=== PATIENT | male | born 1980 | race Caucasian/White ===

== ENCOUNTER 2019-10-30 09:42 | Outpatient (CLI) | payer OTHER, BC, SELFPAY ==
--- NOTE | 2019-10-30 10:30 | NEURO_ITS ---
Patient Number: [id number] Impression: # Complains of numbness of hands, right more than left. # Evolving Carpal Tunnel Syndrome, left more than right. # No ulnar neuropathy. # Normal needle/EMG exam. # Clinical correlation recommended. Nerve Conduction Studies Anti Sensory Summary Table Stim Site NR Peak (ms) P-T Amp (?V) Site1 Site2 Delta-P (ms) Dist (cm) Allan (m/s) Left Median Anti Sensory (2-3nd Digit) Wrist 3.2 38.2 Wrist 2-3nd Digit 3.2 14.0 44 Wrist 3.3 43.4 Wrist 2-3nd Digit 3.2 14.0 44 Right Median Anti Sensory (2-3nd Digit) Wrist 3.2 34.0 Wrist 2-3nd Digit 3.2 14.0 44 Wrist 3.3 40.0 Wrist 2-3nd Digit 3.2 14.0 44 Left Radial Anti Sensory (Base 1st Digit) Wrist 2.1 12.9 Wrist Base 1st Digit 2.1 0.0 Right Radial Anti Sensory (Base 1st Digit) Wrist 2.1 14.7 Wrist Base 1st Digit 2.1 0.0 Left Ulnar Anti Sensory (5th Digit) Wrist 2.8 44.0 Wrist 5th Digit 2.8 14.0 50 Right Ulnar Anti Sensory (5th Digit) Wrist 2.7 37.2 Wrist 5th Digit 2.7 14.0 52 Motor Summary Table Stim Site NR Onset (ms) O-P Amp (mV) Site1 Site2 Delta-0 (ms) Dist (cm) Allan (m/s) Left Median Motor (Abd Poll Brev) Wrist 3.8 2.5 Elbow Wrist 4.4 27.0 61 Elbow 8.2 2.6 Right Median Motor (Abd Poll Brev) Wrist 3.6 2.4 Elbow Wrist 4.6 26.0 57 Elbow 8.2 1.9 Left Ulnar Motor (Abd Dig Minimi) Wrist 2.6 5.1 A Elbow Wrist 5.1 30.0 59 A Elbow 7.7 4.2 Right Ulnar Motor (Abd Dig Minimi) Wrist 2.7 4.2 A Elbow Wrist 4.7 27.0 57 A Elbow 7.4 3.2 F Wave Studies NR F-Lat (ms) L-R F-Lat (ms) Left Median (Mrkrs) (Abd Poll Brev) 28.61 1.01 Right Median (Mrkrs) (Abd Poll Brev) 29.62 1.01 Left Ulnar (Mrkrs) (Abd Dig Min) 28.83 1.00 Right Ulnar (Mrkrs) (Abd Dig Min) 27.83 1.00 EMG Side Muscle Nerve Root Ins Act Fibs Amp Dur Recrt Comment Right 1stDorInt Ulnar C8-T1 Nml Nml Nml Nml Nml Right Ext Indicis Radial (Post Int) C7-8 Nml Nml Nml Nml Nml Right Ext Digitorum Radial (Post Int) C7-8 Nml Nml Nml Nml Nml Right BrachioRad Radial C5-6 Nml Nml Nml Nml Nml Right PronatorTeres Median C6-7 Nml Nml Nml Nml Nml Right Abd Poll Brev Median C8-T1 Nml Nml Nml Nml Nml Left 1stDorInt Ulnar C8-T1 Nml Nml Nml Nml Nml Left Ext Indicis Radial (Post Int) C7-8 Nml Nml Nml Nml Nml Left Ext Digitorum Radial (Post Int) C7-8 Nml Nml Nml Nml Nml Left BrachioRad Radial C5-6 Nml Nml Nml Nml Nml Left PronatorTeres Median C6-7 Nml Nml Nml Nml Nml Left Abd Poll Brev Median C8-T1 Nml Nml Nml Nml Nml MTDD
== END 2019-10-30 09:43 | disposition home or self-care (01) ==
PROVIDERS: PCP Family Medicine; Visit Provider Family Medicine
DX: G56.03 Carpal tunnel syndrome, bilateral upper limbs (principal)
CPT/HCPCS: 95886; 95911

== ENCOUNTER 2019-12-22 00:47 | Outpatient (CLI) | payer OTHER, SELFPAY ==
[2019-12-22 18:37] LABS: SARS-CoV-2 RNA PCR Negative
== END 2019-12-22 00:48 | disposition home or self-care (01) ==
LOC: ANHCOVIDDT 00:47
PROVIDERS: PCP Family Medicine; Visit Provider Orthopaedic Surgery
DX: Z01.812 Encounter for preprocedural laboratory examination (principal); Z20.828 Contact with and (suspected) exposure to other viral communicable diseases
CPT/HCPCS: 87635; C9803; U0003

== ENCOUNTER 2019-12-25 05:19 | Day surgery (SDC) | payer OTHER, SELFPAY ==
[2019-12-17 15:05] VITALS: BMI 35.7
[2019-12-25] VITALS (7 sets, daily range): BP systolic 98–147; BP diastolic 63–86; PULSE 77–91; RESP 10–16; TEMP 36.2–36.8; O2SAT 96–98
--- NOTE | 2019-12-25 07:25 | WPDHPUPDATE1 ---
History and Physical Update Update Date/Time: 12/25/19 07:25 History and Physical has been reviewed, including an updated exam of the patient. There are NO changes in the patient's condition. Risks, benefits, and alternatives have been discussed and questions answered. Patient agrees to proceed with procedure.
[2019-12-25] MEDS: ACETAMINOPHEN 500 MG TABLET 1000 MG PO (11:53)
[2019-12-25] MEDS: CELECOXIB 200 MG CAPSULE PO (11:54)
[2019-12-25] MEDS: LACTATED RINGERS 1,000 ML 30 ML IV CONT (12:05)
--- NOTE | 2019-12-25 12:51 | WPDANESEPPF ---
Anes - Initial Pre Proc Eval Procedure: Operation Date: 12/25/19 14:30 Proposed Procedures p Right Carpal Tunnel Release - Kyler You MD Date/Time: 12/25/19 12:51 Surgeon: Kyler You MD Pre Op Diagnosis: right carpal tunnel syndrome Patient Data Age: 39 Gender: M Height: 5 ft 8 in Weight: 108.6 kg Last Vital Signs Temp 36.8 C 12/25/19 12:12 Pulse 85 12/25/19 12:12 Resp 16 12/25/19 12:12 BP 147/86 H 12/25/19 12:12 Pulse Ox 98 12/25/19 12:12 Allergies Allergy/AdvReac Type Severity Reaction Status Date / Time duloxetine [From Cymbalta] Allergy Mild Rash Verified 12/25/19 11:33 Home Medications Medication Instructions Recorded Confirmed Type bupropion HCl 150 mg 24 hr tablet, 150 mg PO QAM 08/28/19 12/25/19 History extended release bupropion HCl 300 mg 24 hr tablet, 300 mg PO QAM 08/28/19 12/25/19 History extended release vortioxetine 20 mg tablet 20 mg PO DAILY 08/28/19 12/25/19 History naproxen 500 mg tablet 500 mg PO BID PRN #180 tablet 09/17/19 12/25/19 Rx Kratom 2 cap PO BID 12/17/19 History Patient hx anesthesia problems: none Family hx anesthesia problems: none PMFSH Past Medical History Medical History Acute arthritis Allergies Anxiety Bilateral carpal tunnel syndrome Chronic anxiety Depression Fibromyalgia History of migraine headaches IBS (irritable bowel syndrome) Irritable bowel syndrome with diarrhea Migraine without aura and without status migrainosus, not intractable Positive LANIE (antinuclear antibody) Psoriatic arthritis Seasonal allergic rhinitis Sleep apnea Surgical History Surgical History History of fasciotomy (~2004) Family History Family History Mother Hypertension Family history of lupus erythematosus Family history of rheumatoid arthritis Family history of cardiac disorder Carcinoma of colon Family history of malignant neoplasm of cervix Sibling Colon polyp Other Diabetes mellitus Family history of arthritis Neuropathy Social History Social History Smoking status: Unknown if ever smoked Tobacco type: smokeless tobacco Smokeless tobacco user: chewing tobacco Additional smoking assessment comments: CHEWING TOBACCO X 8 YEARS Alcohol intake: current Substance use: unknown Gender identity (if verbalized by the patient): Male Spiritual care concerns: No Anes - Eval Final PreProcedure Day of Procedure 12/25/19 12:51 Patient weight: obese Heart: regular rate and rhythm Lungs: clear to auscultation Airway: Mallampati scale class II Neurological: alert and oriented Last oral intake: >/= 8 hours ASA classification: III Emergent: no Anesthetic plan: proceed Anesthesia type and monitoring: general LMA and standard monitoring Informed Consent: The patient's anesthetic plan and its attendant risks and benefits were discussed with the patient/family/POA. Questions were solicited and answers provided to the satisfaction of the patient/family/POA.
[2019-12-25] MEDS: ceFAZolin 2 GM/D5W 50 ML 2 GM/50 ML BAG IVPB (13:00)
--- NOTE | 2019-12-25 13:41 | PM.PROC ---
Procedure Note - Detailed Date of procedure: 12/25/19 Pre-op diagnosis: right carpal tunnel syndrome Post-op diagnosis: same Procedure performed: R CTR Description of procedure: THE RIGHT UPPER EXTREMITY WAS PREPPED AND DRAPED IN THE STERILE FASHION. THE CARPAL TUNNEL WAS MARKED FROM THE FLEXED RING FINGER. THE TORNEQUET WAS INFLATED. THE INCISION WAS MADE AT THE MID PALM DOWN THROUGH THE SUBCUTANEOUS TISSUES. THE PALMAR FASCIA WAS IDENTIFIED. AN INCISION WAS MADE THROUGH THE PALMAR FASCIA UNTIL THE CARPAL TUNNEL WAS ENTERED. A MOSQUITO HEMOSTAT WAS USED TO PROTECT THE MEDIAN NERVE WHILE THE INCISION TO THE PALMAR FASCIA WAS COMPLETE PROXIMALLY AND DISTALLY TO THE CARDINAL LINE. NEXT, THE TRANSVERSE CARPAL LIGAMENT WAS IDENTIFIED. A FREIER ELEVATOR WAS USED TO SEPARATE THE NERVE FROM THE LIGAMENT. A METZENBAUM SCISSORS WAS THEN USED TO INCISE THE TRANSVERSE CARPAL LIGAMENT UNTIL THERE WAS A COMPLETE RELEASE OF THE CARPAL TUNNEL. THE MEDIAN NERVE WAS INTACT. THE TOURNEQUET WAS DEFLATED. THE BLEEDERS WERE CAUTERIZED. THE WOUND WAS WASHED. THE SKIN WAS APPROXIMATED WITH 4-0 NYLON SUTURE. STERILE DRESSING WAS APPLIED. PATIENT WAS EXTUBATED AND SENT TO THE RECOVERY ROOM. Anesthesia: GLMA Surgeon: Kyler You MD Estimated blood loss (mL): 1 Complications: No immediate complications Condition: stable Disposition: PACU
== END 2019-12-25 15:13 | disposition home or self-care (01) ==
PROVIDERS: PCP Family Medicine; Visit Provider Orthopaedic Surgery
PROC: (CPT 64721; principal; 2019-12-25 14:30)
DX: G56.01 Carpal tunnel syndrome, right upper limb (principal); L40.50 Arthropathic psoriasis, unspecified; K58.0 Irritable bowel syndrome with diarrhea; F41.9 Anxiety disorder, unspecified; F32.9 Major depressive disorder, single episode, unspecified; G43.009 Migraine without aura, not intractable, without status migrainosus; M19.90 Unspecified osteoarthritis, unspecified site; Z87.891 Personal history of nicotine dependence; E66.9 Obesity, unspecified; Z68.36 Body mass index [BMI] 36.0-36.9, adult
CPT/HCPCS: 64721; A9270; J0690; J1100; J2250; J2370; J2405; J2704; J3010; J7120

== ENCOUNTER 2020-01-16 00:08 | Outpatient (CLI) | payer OTHER, SELFPAY ==
[2020-01-16 18:38] LABS: SARS-CoV-2 RNA PCR Negative
== END 2020-01-16 00:09 | disposition home or self-care (01) ==
LOC: ANHCOVIDDT 00:08
PROVIDERS: PCP Family Medicine; Visit Provider Orthopaedic Surgery
DX: Z01.812 Encounter for preprocedural laboratory examination (principal); Z20.828 Contact with and (suspected) exposure to other viral communicable diseases
CPT/HCPCS: 87635; C9803; U0003

== ENCOUNTER 2020-01-18 01:21 | Day surgery (SDC) | payer OTHER, SELFPAY ==
[2020-01-10 09:29] VITALS: BMI 35.9
--- NOTE | 2020-01-10 12:33 | PM.IMHP ---
H&P: HPI History of Present Illness Date/Time: Hand/Wrist Pain Bilateral CTS. Pt had EMG/NCS on 10/30/19. Onset: gradual Timin-3 months Location of pain: palmar hand Character: throbbing, numbing and tingling Timing of pain: constant Associated symptoms: Reports weakness; Denies fever(s), erythema, warmth or swelling Exacerbated by: prolonged activities Relieved by: rest Swelling: No History of occupational/recreational activity with repetitive movement: No History of prior hand/wrist injury: No Chief Complaint Chief Complaint: see Reason for Visit Duration: months Severity: moderate Associated signs and symptoms: symptoms reported: (see hpi ) Exacerbating/relieving factors: exacerbating factors: (see hpi ) and relieving factors: (see hpi ) Chief complaint: left carpal tunnel syndrome Review of Systems Review of Systems: All systems reviewed & are unremarkable except as noted in HPI and below Constitutional: Constitutional: Denies headache(s) and Denies weakness Eyes: Eyes: Denies blurry vision, Denies change in vision and Denies loss of vision ENT: Denies dizziness, Denies dry mouth, Denies headache(s) and Denies nasal congestion Cardiovascular: Cardiovascular: Denies chest pain, Denies syncope, Denies leg edema and Denies dyspnea on exertion Respiratory: Respiratory: Denies cough and Denies dyspnea on exertion Gastrointestinal: Gastrointestinal: Denies abdominal pain, Denies constipation and Denies diarrhea Genitourinary: Genitourinary: Denies urinary frequency Musculoskeletal: Musculoskeletal: Reports as per HPI and Denies numbness Integumentary/Breasts: Skin/Breast: Reports system reviewed and no additional complaints, except as docu Neurologic: Denies dizziness, Denies syncope, Denies headache(s), Denies loss of vision, Denies numbness and Denies weakness Psychiatric: Psychiatric: Reports no additional psychiatric complaints Endocrine: Endocrine: Reports no additional endocrine complaints Hematologic/Lymphatic: Hematologic/Lymphatic: Reports no additional hematologic/lymphatic complaints [facility] Past Medical History Medical History Acute arthritis Allergies Anxiety Bilateral carpal tunnel syndrome Chronic anxiety Depression Fibromyalgia History of migraine headaches IBS (irritable bowel syndrome) Irritable bowel syndrome with diarrhea Migraine without aura and without status migrainosus, not intractable Positive LANIE (antinuclear antibody) Psoriatic arthritis Seasonal allergic rhinitis Sleep apnea Surgical History Surgical History History of fasciotomy (~2004) Family History Family History Mother Hypertension Family history of lupus erythematosus Family history of rheumatoid arthritis Family history of cardiac disorder Carcinoma of colon Family history of malignant neoplasm of cervix Sibling Colon polyp Other Diabetes mellitus Family history of arthritis Neuropathy Social History Social History Smoking status: Unknown if ever smoked Tobacco type: smokeless tobacco Smokeless tobacco user: chewing tobacco Additional smoking assessment comments: sometimes chewing tobacco Alcohol intake: current Substance use: never Gender identity (if verbalized by the patient): Male Spiritual care concerns: No Meds Home Medications and Allergies Home Medications Medication Instructions Recorded Confirmed Type bupropion HCl 150 mg 24 hr tablet, 150 mg PO QAM 08/28/19 01/10/20 History extended release bupropion HCl 300 mg 24 hr tablet, 300 mg PO QAM 08/28/19 01/10/20 History extended release vortioxetine 20 mg tablet 20 mg PO DAILY 08/28/19 01/10/20 History naproxen 500 mg tablet 500 mg PO BID PRN #180 tablet 09/17/19 01/10/20 Rx Kratom 2 cap PO BI
[2020-01-18] VITALS (9 sets, daily range): BP systolic 111–152; BP diastolic 77–105; PULSE 80–93; RESP 12–19; TEMP 35.9–36.3; O2SAT 95–99; BMI 36.1
[2020-01-18] MEDS: CELECOXIB 200 MG CAPSULE PO (06:26)
[2020-01-18] MEDS: ACETAMINOPHEN 500 MG TABLET 1000 MG PO (06:27)
[2020-01-18] MEDS: LACTATED RINGERS 1,000 ML 30 ML IV CONT (06:30)
--- NOTE | 2020-01-18 06:57 | WPDANESEPPF ---
Anes - Initial Pre Proc Eval Procedure: Operation Date: 01/18/20 07:30 Proposed Procedures p Left Carpal Tunnel Release - Kyler You MD Date/Time: 01/18/20 06:57 Surgeon: Kyler You MD Pre Op Diagnosis: left carpal tunnel syndrome Patient Data Age: 39 Gender: M Height: 5 ft 8 in Weight: 108 kg Last Vital Signs Temp 36.3 C L 01/18/20 06:16 Pulse 80 01/18/20 06:16 Resp 18 01/18/20 06:16 BP 152/105 H 01/18/20 06:16 Pulse Ox 99 01/18/20 06:16 Allergies Allergy/AdvReac Type Severity Reaction Status Date / Time duloxetine [From Cymbalta] Allergy Mild Rash Verified 01/18/20 06:08 Home Medications Medication Instructions Recorded Confirmed Type bupropion HCl 150 mg 24 hr tablet, 150 mg PO QAM 08/28/19 01/18/20 History extended release bupropion HCl 300 mg 24 hr tablet, 300 mg PO QAM 08/28/19 01/18/20 History extended release vortioxetine 20 mg tablet 20 mg PO DAILY 08/28/19 01/18/20 History naproxen 500 mg tablet 500 mg PO BID PRN #180 tablet 09/17/19 01/18/20 Rx Kratom 2 cap PO BID 12/17/19 01/18/20 History Patient hx anesthesia problems: none Family hx anesthesia problems: none PMFSH Past Medical History Medical History Acute arthritis Allergies Anxiety Bilateral carpal tunnel syndrome Chronic anxiety Depression Fibromyalgia History of migraine headaches IBS (irritable bowel syndrome) Irritable bowel syndrome with diarrhea Migraine without aura and without status migrainosus, not intractable Positive LANIE (antinuclear antibody) Psoriatic arthritis Seasonal allergic rhinitis Sleep apnea Surgical History Surgical History History of fasciotomy (~2004) Family History Family History Mother Hypertension Family history of lupus erythematosus Family history of rheumatoid arthritis Family history of cardiac disorder Carcinoma of colon Family history of malignant neoplasm of cervix Sibling Colon polyp Other Diabetes mellitus Family history of arthritis Neuropathy Social History Social History Smoking status: Unknown if ever smoked Tobacco type: smokeless tobacco Smokeless tobacco user: chewing tobacco Additional smoking assessment comments: sometimes chewing tobacco Alcohol intake: current Substance use: never Living arrangements: with family Gender identity (if verbalized by the patient): Male Sexual Orientation (if Verbalized by the Patient): Straight or Heterosexual Spiritual care concerns: No Anes - Eval Final PreProcedure Day of Procedure 01/18/20 06:57 Patient weight: obese Heart: regular rate and rhythm Lungs: clear to auscultation Airway: Mallampati scale class II Neurological: alert and oriented Last oral intake: >/= 8 hours ASA classification: III Emergent: no Anesthetic plan: proceed Anesthesia type and monitoring: general LMA and standard monitoring Informed Consent: The patient's anesthetic plan and its attendant risks and benefits were discussed with the patient/family/POA. Questions were solicited and answers provided to the satisfaction of the patient/family/POA.
--- NOTE | 2020-01-18 07:17 | WPDHPUPDATE1 ---
History and Physical Update Update Date/Time: 01/18/20 07:17 History and Physical has been reviewed, including an updated exam of the patient. There are NO changes in the patient's condition. Risks, benefits, and alternatives have been discussed and questions answered. Patient agrees to proceed with procedure.
[2020-01-18] MEDS: ceFAZolin 2 GM/D5W 50 ML 2 GM/50 ML BAG IVPB (07:24)
--- NOTE | 2020-01-18 08:26 | PM.PROC ---
Procedure Note - Detailed Date of procedure: 01/18/20 Pre-op diagnosis: left carpal tunnel syndrome Post-op diagnosis: same Procedure performed: L CTR Description of procedure: THE LEFT UPPER EXTREMITY WAS PREPPED AND DRAPED IN THE STERILE FASHION. THE CARPAL TUNNEL WAS MARKED FROM THE FLEXED RING FINGER. THE TORNEQUET WAS INFLATED. THE INCISION WAS MADE AT THE MID PALM DOWN THROUGH THE SUBCUTANEOUS TISSUES. THE PALMAR FASCIA WAS IDENTIFIED. AN INCISION WAS MADE THROUGH THE PALMAR FASCIA UNTIL THE CARPAL TUNNEL WAS ENTERED. A MOSQUITO HEMOSTAT WAS USED TO PROTECT THE MEDIAN NERVE WHILE THE INCISION TO THE PALMAR FASCIA WAS COMPLETE PROXIMALLY AND DISTALLY TO THE CARDINAL LINE. NEXT, THE TRANSVERSE CARPAL LIGAMENT WAS IDENTIFIED. A FREIER ELEVATOR WAS USED TO SEPARATE THE NERVE FROM THE LIGAMENT. A METZENBAUM SCISSORS WAS THEN USED TO INCISE THE TRANSVERSE CARPAL LIGAMENT UNTIL THERE WAS A COMPLETE RELEASE OF THE CARPAL TUNNEL. THE MEDIAN NERVE WAS INTACT. THE TOURNEQUET WAS DEFLATED. THE BLEEDERS WERE CAUTERIZED. THE WOUND WAS WASHED. THE SKIN WAS APPROXIMATED WITH 4-0 NYLON SUTURE. STERILE DRESSING WAS APPLIED. PATIENT WAS EXTUBATED AND SENT TO THE RECOVERY ROOM. Anesthesia: GLMA Surgeon: Kyler You MD Estimated blood loss (mL): 5 Complications: No immediate complications Condition: stable Disposition: PACU
[2020-01-18] MEDS: fentaNYL CITRATE INJ (*CRX) 100 MCG/2 ML VIAL 25 MCG IV PUSH (08:40)
[2020-01-18] MEDS: oxyCODONE HCL (*CRX) 5 MG TAB IR PO (09:26)
== END 2020-01-18 10:13 | disposition home or self-care (01) ==
PROVIDERS: PCP Family Medicine; Visit Provider Orthopaedic Surgery
PROC: (CPT 64721; principal; 2020-01-18 07:30)
DX: G56.02 Carpal tunnel syndrome, left upper limb (principal); L40.50 Arthropathic psoriasis, unspecified; F41.8 Other specified anxiety disorders; M79.7 Fibromyalgia; K58.9 Irritable bowel syndrome, unspecified; G47.30 Sleep apnea, unspecified; F17.220 Nicotine dependence, chewing tobacco, uncomplicated; E66.9 Obesity, unspecified; Z68.36 Body mass index [BMI] 36.0-36.9, adult
CPT/HCPCS: 64721; A9270; J0690; J1100; J2250; J2405; J2704; J3010; J7120

== ENCOUNTER 2020-04-08 09:09 | Outpatient (CLI) | payer BC, SELFPAY ==
--- NOTE | 2020-05-18 17:35 | WPDHOMESLEEP ---
Sleep Study - Home Unattended Date of Study: 04/08/20 Ordering Provider: Art Mclean MD Interpreting Physician: Kellie Alarcon MD Home Sleep Study Type: Watch PAT Height: 1.73 m Weight: 108.862 kg Body Mass Index: 36.5 Neck Circumference (inches): 17.5 [place]: 6 Reason for Sleep Study history of moderate sleep apnea; always feels tired in the day, nonrestorative sleep Sleep History Tobias Carlton is a 39 year old man who always feels excessively tired. He had a sleep study in the past, has a diagnosis of moderate obstructive sleep apnea. He has psoriatic arthritis, fibromyalgia. He has used different medications to help him sleep. He constantly snores loudly enough that others complain about it. He rarely awakens at night with heartburn, belching or coughing. He never wakens from sleep feeling short of breath. He occasionally has trouble sleeping with a cold. He does not gasp for breath at night and does not have breathing problems at night witnessed by others. He frequently sweats excessively at night. He does not notice his heart pounding or beating irregularly night. He does not fall asleep during the day. He frequently falls asleep involuntarily however never while driving and never while exerting physical effort. He occasionally has loss of muscle tone with strong emotion and occasionally has daytime difficulty using a sleepiness. He works as a Construction Rigging Specialist. is he never feels a lot with her sleep. He constantly has fitted dreamlike scenes upon awakening or falling asleep. He is not afraid to go to sleep. he occasionally has nightmares occasionally remembers his dreams. He constantly has racing thoughts. She frequently feels sad, depressed and anxious. He never has muscular tension. He occasionally notices parts of his body jerking. He does not kick at night. He constantly has crawling and aching feelings in his legs. He frequently has leg pain at night. He does not have morning jaw pain. He does not grind his teeth during sleep. He constantly is bothered by pain during the day. Occasionally is awakened by pain at night. He constantly wakes up feeling stiff in the morning with sore or achy muscles and pain in the neck and spine. He has fatigue, memory problems, concentration difficulties, depression and sexual problems. Normal bedtime is 11:00 p.m., falling asleep within 5-10 minutes, typically waking once at night to urinate and sometimes get a drink of water. He is able to return to sleep within 10 minutes. He wakes in the morning at 6:30 a.m. On weekends, he stays awake later, midnight or 12:30 a.m. bedtime and waking at 8:00 a.m.. He hits the snooze button for 8 minutes once in the morning. He does not take naps. A short nap is not refreshing. He is drowsy in the morning for 1 hour or longer. Habits: He never smoked tobacco. No caffeine, alcohol or recreational drugs PMFSH Past Medical History Medical History (Updated 05/18/20 @ 18:07 by Kellie Alarcon MD) Acute arthritis Acute sinusitis, unspecified Allergies Anxiety Bilateral carpal tunnel syndrome Chronic anxiety COVID-19 Depression Exposure to COVID-19 virus Fibromyalgia History of migraine headaches IBS (irritable bowel syndrome) Irritable bowel syndrome with diarrhea Migraine without aura and without status migrainosus, not intractable Positive LANIE (antinuclear antibody) Psoriatic arthritis Seasonal allergic rhinitis Sleep apnea Surgical History Surgical History (Updated 05/18/20 @ 17:41 by Kellie Alarcon MD) History of carpal tunnel release of both wrists History of fasciotomy (~2004) both lower legs 2004 Family History Family History Mother Hypertension Family history of lupus erythematosus Family history of rheumatoid arthritis Family history of cardiac disorder Carcinoma of colon Family history of malignant neoplasm of cervix Sibling Colon
[2020-05-18 18:11] VITALS: BMI 36.5
== END 2020-04-08 09:10 | disposition home or self-care (01) ==
LOC: ANHCSM 09:12
PROVIDERS: PCP Family Medicine; Visit Provider Family Medicine
DX: G47.33 Obstructive sleep apnea (adult) (pediatric) (principal)
CPT/HCPCS: 95800

== ENCOUNTER → 2020-05-31 06:50 | Outpatient (CLI) | payer BC, SELFPAY ==
[2020-05-31 19:42] LABS: SARS-CoV-2 RNA PCR Negative
== END ==
PROVIDERS: PCP Family Medicine; Visit Provider Internal Medicine Critical Care Medicine
DX: R68.89 Other general symptoms and signs (principal); Z20.822 Contact with and (suspected) exposure to COVID-19
CPT/HCPCS: C9803; U0003; U0005

== ENCOUNTER 2020-06-03 08:59 | Outpatient (CLI) | payer BC, SELFPAY ==
--- NOTE | 2020-06-23 14:27 | WPDSLEEPSTUD ---
Sleep Study Ordering Provider: Art Mclean MD Interpreting Physician: Kellie Alarcon MD Sleep Study Type: CPAP Titration Height: 1.73 m Weight: 102.058 kg Body Mass Index: 34.2 Neck Circumference (inches): 17 [place]: 8 Reason for Sleep Study Home Sleep Test April 08, 2020 with severe obstructive sleep apnea syndrome AHI 45.5, desaturation 82%; he is here for CPAP titration. Sleep History Tobias Carlton is a 39 year old male who had a home sleep test Apr 08, 2020, with severe MARBELLA, and is here for CPAP titration. He had a sleep study in the past, has a diagnosis of moderate obstructive sleep apnea. He has psoriatic arthritis and fibromyalgia. He has used different medications to help him sleep. He constantly snores loudly enough that others complain about it. He rarely awakens at night with heartburn, belching or coughing. He never awakens from sleep feeling short of breath. He occasionally has trouble sleeping with a cold. He does not gasp for breath at night and does not have breathing problems at night witnessed by others. He frequently sweats excessively at night. He does not notice his heart pounding or beating irregularly night. He does not fall asleep during the day. He frequently falls asleep involuntarily however never while driving and never while exerting physical effort. He occasionally has loss of muscle tone with strong emotion and occasionally has daytime difficulty using a sleepiness. He works as a Construction Rigging Specialist. He constantly has vivid dreamlike scenes upon awakening or falling asleep. He is not afraid to go to sleep. He occasionally has nightmares, and occasionally remembers his dreams. He constantly has racing thoughts. He frequently feels sad, depressed and anxious. He never has muscular tension. He occasionally notices parts of his body jerking. He does not kick at night. He constantly has crawling and aching feelings in his legs. He frequently has leg pain at night. He does not have morning jaw pain. He does not grind his teeth during sleep. He constantly is bothered by pain during the day, and occasionally is awakened by pain at night. He constantly wakes up feeling stiff in the morning with sore or achy muscles and pain in the neck and spine. He has fatigue, memory problems, concentration difficulties, depression and sexual problems. Normal bedtime is 11:00 p.m., falling asleep within 5-10 minutes, typically waking once at night to urinate and sometimes get a drink of water. He is able to return to sleep within 10 minutes. He wakes in the morning at 6:30 a.m. On weekends, he stays awake later, midnight or 12:30 a.m. bedtime and waking at 8:00 a.m.. He hits the snooze button for 8 minutes once in the morning. He does not take naps. A short nap is not refreshing. He is drowsy in the morning for 1 hour or longer. Habits: He never smoked tobacco. No caffeine, alcohol or recreational drugs PMFSH Past Medical History Medical History (Updated 06/23/20 @ 14:39 by Kellie Alarcon MD) Acute arthritis Acute sinusitis, unspecified Allergies Anxiety Bilateral carpal tunnel syndrome Chronic anxiety COVID-19 Depression Exposure to COVID-19 virus Fibromyalgia History of migraine headaches IBS (irritable bowel syndrome) Irritable bowel syndrome with diarrhea Migraine without aura and without status migrainosus, not intractable Positive LANIE (antinuclear antibody) Psoriatic arthritis Seasonal allergic rhinitis Sleep apnea Surgical History Surgical History (Updated 05/18/20 @ 17:41 by Kellie Alarcon MD) History of carpal tunnel release of both wrists History of fasciotomy (~2004) both lower legs 2004 Family History Family History Mother Hypertension Family history of lupus erythematosus Family history of rheumatoid arthritis Family history of cardiac disorder Carcinoma of colon Family history of maligna
[2020-06-23 14:54] VITALS: BMI 34.2
== END 2020-06-03 09:00 | disposition home or self-care (01) ==
LOC: ANHCSM 08:59
PROVIDERS: PCP Family Medicine; Visit Provider Family Medicine
DX: G25.81 Restless legs syndrome (principal)
CPT/HCPCS: 95811

== ENCOUNTER → 2020-12-08 01:40 | Outpatient (CLI) | payer BC, SELFPAY | PROVIDERS: PCP Family Medicine; Visit Provider Surgery | DX: Z20.822 Contact with and (suspected) exposure to COVID-19 (principal) | CPT/HCPCS: C9803; U0003; U0005 ==

== ENCOUNTER 2020-12-11 02:00 | Day surgery (SDC) | payer BC, SELFPAY ==
[2020-12-02 13:29] VITALS: BMI 35.9
[2020-12-09 19:52] LABS: SARS-CoV-2 RNA PCR Negative
--- NOTE | 2020-12-10 13:01 | WPDANESEPPF ---
Anes - Initial Pre Proc Eval Procedure: Operation Date: 12/11/20 08:00 Proposed Procedures p Screening Colonoscopy - Rafael Lancastre DO Date/Time: 12/10/20 13:01 Surgeon: Rafael Lancaster DO Pre Op Diagnosis: family hx of colon ca Patient Data Age: 40 Gender: M Height: 1.73 m Weight: 107 kg Allergies Allergy/AdvReac Type Severity Reaction Status Date / Time duloxetine [From Cymbalta] Allergy Mild Rash Verified 12/11/20 06:47 Home Medications Medication Instructions Recorded Confirmed Type bupropion HCl 150 mg 24 hr tablet, 150 mg PO QAM 08/28/19 12/02/20 History extended release bupropion HCl 300 mg 24 hr tablet, 300 mg PO QAM 08/28/19 12/02/20 History extended release vortioxetine 20 mg tablet 20 mg PO DAILY 08/28/19 12/02/20 History Kratom 2 cap PO BID 12/17/19 12/02/20 History naproxen 500 mg tablet 500 mg PO BID PRN #180 tablet 09/02/20 12/02/20 Rx Laboratory Tests 12/08/20 07:36 SARS-CoV-2 RNA (RT-PCR) Negative Patient hx anesthesia problems: none Family hx anesthesia problems: none PMFSH Past Medical History Medical History (Updated 12/10/20 @ 13:02 by Prakash Anne DO) Acute arthritis Acute sinusitis, unspecified Allergies Anxiety Bilateral carpal tunnel syndrome BMI 35.0-35.9,adult Chronic anxiety Chronic depression COVID-19 (~02/13/20) Depression Exposure to COVID-19 virus Fibromyalgia History of migraine headaches IBS (irritable bowel syndrome) Irritable bowel syndrome with diarrhea Laceration of lip without complication Migraine without aura and without status migrainosus, not intractable Obstructive sleep apnea (~04/2100) very severe MARBELLA with AHI of 45 home sleep study with CPAP titration on 06/03/2020 with CPAP at 10 cm of water pressure with medium air fit N30 nasal pillows Positive LANIE (antinuclear antibody) Psoriatic arthritis Seasonal allergic rhinitis Sleep apnea Surgical History Surgical History (Updated 05/18/20 @ 17:41 by Kellie Alarcon MD) History of carpal tunnel release of both wrists History of fasciotomy (~2004) both lower legs 2005 Family History Family History Mother Hypertension Family history of lupus erythematosus Family history of rheumatoid arthritis Family history of cardiac disorder Carcinoma of colon Family history of malignant neoplasm of cervix Sibling Colon polyp Other Diabetes mellitus Family history of arthritis Neuropathy Social History Social History Smoking status: Former smoker Tobacco type: smokeless tobacco Additional smoking assessment comments: sometimes chewing tobacco Alcohol intake: current Alcohol use details: 2x Monthly Substance use: never Substance use type: does not use Living arrangements: with family Gender identity (if verbalized by the patient): Male Sexual Orientation (if Verbalized by the Patient): Straight or Heterosexual Spiritual care concerns: No Anes - Eval Final PreProcedure Day of Procedure 12/10/20 13:01 Patient weight: obese Heart: regular rate and rhythm Lungs: clear to auscultation and normal air movement Airway: Mallampati scale class II Neurological: alert and oriented Last oral intake: >/= 8 hours ASA classification: III Emergent: no Anesthetic plan: proceed Anesthesia type and monitoring: general GIVS and standard monitoring Informed Consent: The patient's anesthetic plan and its attendant risks and benefits were discussed with the patient/family/POA. Questions were solicited and answers provided to the satisfaction of the patient/family/POA.
[2020-12-11 06:49] VITALS: BP 143/96; PULSE 78; RESP 18; TEMP 36.5; O2SAT 99; BMI 36.8
[2020-12-11] MEDS: LACTATED RINGERS 1,000 ML 150 ML IV CONT (07:00)
--- NOTE | 2020-12-11 08:17 | PM.IMHP ---
H&P: HPI History of Present Illness Date/Time: 12/11/20 08:17 Chief Complaint: family history of colon cancer and colon polyps Narrative: this is a 40-year-old man who presents for colonoscopy. He has never had a colonoscopy before. He has a family history of colon polyps in his mother and sister and there is also second-degree relatives that have had colon cancer. He denies any blood in his stool. He denies any bowel habit changes. Review of Systems Review of Systems: All systems reviewed & are unremarkable except as noted in HPI and below Constitutional: Constitutional: Denies chills, Denies fever(s), Denies headache(s) and Denies weight loss Eyes: Eyes: Denies change in vision ENT: Denies dizziness, Denies headache(s), Denies neck mass and Denies throat swelling Cardiovascular: Cardiovascular: Denies chest pain, Denies lightheadedness and Denies dyspnea Respiratory: Respiratory: Denies cough, Denies dyspnea and Denies wheezing Gastrointestinal: Gastrointestinal: Denies abdominal pain, Denies change in bowel habits, Denies nausea and Denies vomiting Genitourinary: Genitourinary: Denies hematuria and Denies dysuria Musculoskeletal: Musculoskeletal: Reports as per HPI Integumentary/Breasts: Skin/Breast: Reports as per HPI Neurologic: Denies dizziness and Denies headache(s) Allergic/Immunologic: Allergic/Immunologic: Denies throat swelling and Denies wheezing [facility] Past Medical History Medical History (Updated 12/11/20 @ 08:18 by Rafael Lancaster DO) Acute arthritis Acute sinusitis, unspecified Allergies Anxiety Bilateral carpal tunnel syndrome BMI 35.0-35.9,adult Chronic anxiety Chronic depression COVID-19 (~02/13/20) Depression Exposure to COVID-19 virus Fibromyalgia History of migraine headaches IBS (irritable bowel syndrome) Irritable bowel syndrome with diarrhea Laceration of lip without complication Migraine without aura and without status migrainosus, not intractable Obstructive sleep apnea (~04/2100) very severe MARBELLA with AHI of 45 home sleep study with CPAP titration on 06/03/2020 with CPAP at 10 cm of water pressure with medium air fit N30 nasal pillows Positive LANIE (antinuclear antibody) Psoriatic arthritis Seasonal allergic rhinitis Sleep apnea Surgical History Surgical History (Updated 05/18/20 @ 17:41 by Kellie Alarcon MD) History of carpal tunnel release of both wrists History of fasciotomy (~2004) both lower legs 2004 Family History Family History Mother Hypertension Family history of lupus erythematosus Family history of rheumatoid arthritis Family history of cardiac disorder Carcinoma of colon Family history of malignant neoplasm of cervix Sibling Colon polyp Other Diabetes mellitus Family history of arthritis Neuropathy Social History Social History Smoking status: Former smoker Tobacco type: smokeless tobacco Additional smoking assessment comments: sometimes chewing tobacco Alcohol intake: current Alcohol use details: 2x Monthly Substance use: never Substance use type: does not use Living arrangements: with family Gender identity (if verbalized by the patient): Male Sexual Orientation (if Verbalized by the Patient): Straight or Heterosexual Spiritual care concerns: No Meds Home Medications and Allergies Home Medications Medication Instructions Recorded Confirmed Type bupropion HCl 150 mg 24 hr tablet, 150 mg PO QAM 08/28/19 12/02/20 History extended release bupropion HCl 300 mg 24 hr tablet, 300 mg PO QAM 08/28/19 12/02/20 History extended release vortioxetine 20 mg tablet 20 mg PO DAILY 08/28/19 12/02/20 History Kratom 2 cap PO BID 12/17/19 12/02/20 History naproxen 500 mg tablet 500 mg PO BID PRN #180 tablet 09/02/20 12/02/20 Rx Allergies Allergy/AdvReac Type Severity Reaction Status Date / T
[2020-12-11 08:40] VITALS: BP 109/58; PULSE 75; RESP 16; O2SAT 97
[2020-12-11 08:50] VITALS: BP 116/74; PULSE 75; RESP 19; O2SAT 99
[2020-12-11 09:00] VITALS: BP 119/60; PULSE 80; RESP 20; O2SAT 99
== END 2020-12-11 09:30 | disposition home or self-care (01) ==
PROVIDERS: PCP Family Medicine; Visit Provider Surgery
PROC: 0DJD8ZZ Inspection of Lower Intestinal Tract, Via Natural or Artificial Opening Endoscopic (ICD-10-PCS; CPT 45378; principal; 2020-12-11 08:00)
DX: Z12.11 Encounter for screening for malignant neoplasm of colon (principal); K58.0 Irritable bowel syndrome with diarrhea; Z80.0 Family history of malignant neoplasm of digestive organs; Z83.71 Family history of colonic polyps; M79.7 Fibromyalgia; G47.33 Obstructive sleep apnea (adult) (pediatric); L40.50 Arthropathic psoriasis, unspecified; F32.9 Major depressive disorder, single episode, unspecified; F41.9 Anxiety disorder, unspecified
CPT/HCPCS: 45378; J2001; J2704; J7120

== ENCOUNTER 2021-03-11 17:57 | Outpatient (CLI) | payer BC, SELFPAY ==
--- NOTE | ~2021-03-11 | XR_ITS ---
EXAMINATION: XR ankle LT min 3V DATE: 03/11/2021 18:18 INDICATION: Pain in left ankle and joints of left foot. TECHNIQUE: 4 views of left ankle were obtained. COMPARISON: Left ankle radiographs 10/03/2014 FINDINGS: Bone alignment is normal. No fracture. Joint spaces are normal. There is ankle soft tissue swelling. IMPRESSION: 1. No fracture or arthritis. Reviewed, dictated and finalized at location A. O HOST
== END 2021-03-11 17:58 | disposition home or self-care (01) ==
LOC: ANHIMG 18:03
PROVIDERS: PCP Family Medicine; Visit Provider Nurse Practitioner Family
DX: M25.572 Pain in left ankle and joints of left foot (principal); S99.912A Unspecified injury of left ankle, initial encounter
CPT/HCPCS: 73610

== ENCOUNTER → 2023-07-21 09:31 | Outpatient (CLI) | payer OTHER, SELFPAY ==
--- NOTE | ~2023-07-21 | XR_ITS ---
XR shoulder RT min 2V 07/21/2023 09:46 INDICATION: Right shoulder pain PROCEDURE: 4 views right shoulder COMPARISON: No prior studies for comparison. FINDINGS: Fracture, dislocation or subluxation is not identified. The soft tissues appear within norm al limits. No foreign bodies are identified. IMPRESSION: 1: NO ACUTE BONE OR JOINT ABNORMALITY IDENTIFIED. Reviewed, dictated and finalized at location A.
== END ==
PROVIDERS: PCP Nurse Practitioner Family; Visit Provider Nurse Practitioner Family
DX: M25.511 Pain in right shoulder (principal)
CPT/HCPCS: 73030

== ENCOUNTER 2023-08-19 14:06 | Outpatient (CLI) | payer OTHER, SELFPAY ==
--- NOTE | ~2023-08-19 | MR_ITS ---
EXAMINATION: MR shoulder RT wo con DATE: 08/19/2023 15:13 INDICATION: Right shoulder pain. TECHNIQUE: Magnetic resonance imaging (MRI) of the right shoulder was performed without intravenous c ontrast. Sequences included axial PD-weighted FS FSE, coronal oblique PD-weighted FS FSE and T2-weigh imelda FS FSE, and sagittal oblique T2-weighted FS FSE and T1-weighted FSE. COMPARISON: Right shoulder radiographs 07/21/2023 FINDINGS: Coracoacromial arch: The acromion undersurface is flat in morphology (type I). There is moderate acromioclavicular joint o steoarthritis. There is mild subacromial/subdeltoid bursitis. Rotator cuff: There is moderate supraspinatus tendinopathy and mild infraspinatus tendinopathy. Teres minor tendon is normal. There is mild subscapularis tendinopathy. No tear. There is no asymmetric fatty atrophy of the rotator cuff muscle bellies. Biceps tendon and glenoid labrum: Biceps tendon is in bicipital groove. Intra-articular biceps tendon is normal. The glenoid labrum is normal. Fluid: There is no glenohumeral joint effusion. Bones/cartilage: Glenoid cartilage is normal. Humeral head cartilage is normal. IMPRESSION: 1. Moderate rotator cuff tendinopathy. No tear. 2. Mild subacromial/subdeltoid bursitis. 3. Moderate acromioclavicular joint osteoarthritis. Reviewed, dictated and finalized at location E.
== END 2023-08-19 14:07 | disposition home or self-care (01) ==
PROVIDERS: PCP Family Medicine; Visit Provider Nurse Practitioner Family
DX: M75.21 Bicipital tendinitis, right shoulder (principal); M75.51 Bursitis of right shoulder; M19.011 Primary osteoarthritis, right shoulder
CPT/HCPCS: 73221